=== PATIENT | female | born 1970 | race Two or more races ===

== ENCOUNTER 2017-04-14 05:46 | Emergency (ER) | payer SELFPAY ==
[~2017-04-14] VITALS: Ht 160 cm; Wt 70.0 kg
[2017-04-14 06:48] LABS: HEMATOCRIT 33.6 % (36.0-46.0); MCH 28.8 PG (29.0-34.0); MCHC 33.9 G/DL (30.0-36.0); MCV 84.8 FL (83-99); MEAN PLAT.VOLUME 9.7 uM^3 (9.5-12.4); PLATELET COUNT 243 K/uL (156-360); RBC DIS.WIDTH-CV 13.8 % (11.8-14.6); RBC DIS.WIDTH-SD 42.8 % (39-53); RED BLOOD COUNT 3.96 M/uL (3.80-5.20); WHITE BLOOD COUNT 9.3 K/uL (4.1-10.2)
[2017-04-14 06:50] LABS: CHLORIDE 114 mEq/L (99-109); POTASSIUM 4.1 mEq/L (3.7-5.4); SODIUM 143 mEq/L (136-147)
[2017-04-14 06:53] LABS: GLUCOSE 102 mg/dL (70-99)
[2017-04-14 06:54] LABS: ANION GAP 9 MEQ/L (2-14); TOTAL BILIRUBIN 0.3 mg/dL (0.0-1.0)
[2017-04-14 06:55] LABS: SERUM ETHYL ALCOHOL 150 mg/dL
[2017-04-14 06:56] LABS: ALKALINE PHOSPHATASE 66 IU/L (3-129); GFR ESTIMATE (CALCULATED) > 59 mL/min/
[2017-04-14 06:57] LABS: UREA NITROGEN (BUN) 14 mg/dL (9-23)
[2017-04-14 07:05] LABS: QUANTITATIVE HCG < 4.0 MIU/ML
[2017-04-14 07:16] LABS: BILIRUBIN NEGATIVE; BLOOD NEGATIVE; GLUCOSE (STRIP) NEGATIVE; KETONES NEGATIVE; LEUKOCYTES NEGATIVE; NITRITE NEGATIVE; PROTEIN (STRIP) NEGATIVE; SPECIFIC GRAVITY 1.005 (1.000-1.030); UROBILINOGEN 0.2 MG/DL (0.2-1.0)
[2017-04-14 07:25] LABS: AMPHETAMINE NEGATIVE (500 ng/mL); BARBITURATES NEGATIVE (200 ng/mL); BENZODIAZEPINES NEGATIVE (150 ng/mL); COCAINE NEGATIVE (150 ng/mL); INTERNAL CONTROLS VALID? YES; METHADONE NEGATIVE (200 ng/mL); METHAMPHETAMINE NEGATIVE (500 ng/mL); OPIATES (MORPHINE) NEGATIVE (100 ng/mL); OXYCODONE NEGATIVE (100 ng/mL); PHENCYCLIDINE NEGATIVE (25 ng/mL); PROPOXYPHENE NEGATIVE (300 ng/mL); THC CANNABINOIDS NEGATIVE (50 ng/mL); TRICYCLIC ANTIDEPRESSANTS NEGATIVE (300 ng/mL)
[2017-04-14 07:25] LABS: ADD MIUA? NO; COLOR PALE STRAW ((YELLOW))
[2017-04-14 08:31] VITALS: BP 106/49
== END 2017-04-14 08:34 | disposition home or self-care (01) ==
LOC: EME 05:46
PROVIDERS: Emergency Medicine
DX: F10.129 Alcohol abuse with intoxication, unspecified (principal); Y90.6 Blood alcohol level of 120-199 mg/100 ml
CPT/HCPCS: 80053; 81003; 84702; 85027; 93005; 99281; 99285; G0480; J7030

== ENCOUNTER 2017-10-05 02:17 | Emergency (ER) | payer OTHER ==
[~2017-10-05] VITALS: Ht 162.6 cm; Wt 68.0 kg
[2017-10-05 03:02] LABS: HEMATOCRIT 40.9 % (36.0-46.0); HEMOGLOBIN 14.5 G/DL (11.9-15.5); MCH 29.5 PG (29.0-34.0); MCHC 35.5 G/DL (30.0-36.0); MCV 83.1 FL (83-99); PLATELET COUNT 286 K/uL (156-360); RBC DIS.WIDTH-CV 12.8 % (11.8-14.6); RBC DIS.WIDTH-SD 38.8 % (39-53); RED BLOOD COUNT 4.92 M/uL (3.80-5.20)
[2017-10-05 03:10] LABS: CHLORIDE 100 mEq/L (99-109); POTASSIUM 3.3 mEq/L (3.7-5.4); SODIUM 137 mEq/L (136-147)
[2017-10-05 03:12] LABS: GLUCOSE 117 mg/dL (70-99)
[2017-10-05 03:16] LABS: CREATININE 0.9 mg/dL (0.6-1.3); GFR ESTIMATE (CALCULATED) > 59 mL/min/
[2017-10-05 03:17] LABS: UREA NITROGEN (BUN) 16 mg/dL (9-23)
[2017-10-05 03:18] LABS: CREATINE KINASE 138 IU/L (1-294)
[2017-10-05 03:23] LABS: TROP-I INTERPRETATION NEGATIVE; TROPONIN-I < 0.01 ng/mL (0.0-0.30)
[2017-10-05 03:40] LABS: APPEARANCE CLOUDY ((CLEAR)); BILIRUBIN NEGATIVE; BLOOD LARGE; COLOR RED ((YELLOW)); GLUCOSE (STRIP) NEGATIVE; KETONES NEGATIVE; LEUKOCYTES NEGATIVE; NITRITE NEGATIVE; PROTEIN (STRIP) 100; SPECIFIC GRAVITY 1.008 (1.000-1.030); UROBILINOGEN 0.2 MG/DL (0.2-1.0)
[2017-10-05] MEDS ORDERED: VALIUM5 MG PO (03:43)
[2017-10-05 03:45] LABS: BACTERIA NONE SEEN /HPF; EPITHELIAL CELLS NONE SEEN /HPF; MUCUS NONE SEEN /LPF; RED BLOOD CELLS TNTC /HPF (0-5); WHITE BLOOD CELLS 20-30 /HPF (0-5)
[2017-10-05 04:24] VITALS: BP 110/74
== END 2017-10-05 04:11 | disposition home or self-care (01) ==
LOC: EME → EDBD 02:17 → EME 02:17
PROVIDERS: Physician Assistant
DX: R25.2 Cramp and spasm (principal); F45.8 Other somatoform disorders; R55 Syncope and collapse; E87.6 Hypokalemia; R07.9 Chest pain, unspecified; M79.604 Pain in right leg; M79.605 Pain in left leg; R20.2 Paresthesia of skin; R20.0 Anesthesia of skin
CPT/HCPCS: 71045; 80048; 81003; 82550; 84484; 85027; 85379; 93005; 99281; 99285; J1885; J2060; J2405; J3010; J7030